=== PATIENT | male | born 1960 | race Caucasian/White ===

== ENCOUNTER → 2024-08-10 15:18 | Outpatient (REF) | payer BC, SELFPAY | LOC: RAD 15:18 | PROVIDERS: ATTENDING PHYSICIAN Family Medicine | DX: R07.81 Pleurodynia (principal); M79.2 Neuralgia and neuritis, unspecified | CPT/HCPCS: 71101 ==

== ENCOUNTER → 2024-08-21 07:27 | Outpatient (REF) | payer BC, SELFPAY | LOC: HWRAD 07:27 | PROVIDERS: ATTENDING PHYSICIAN Family Medicine | DX: R07.81 Pleurodynia (principal); M79.2 Neuralgia and neuritis, unspecified | CPT/HCPCS: 76700 ==